=== PATIENT | male | born 1975 | race Caucasian/White ===

== ENCOUNTER 2018-09-16 14:21 | Observation (INO) ==
[2018-09-16] MEDS ORDERED: Famotidine PF Inj 20 MG/2 ML Vial IV.PUSH ONE (16:16)
[2018-09-16] MEDS ORDERED: Sod Chloride 0.9% Inj 1,000 ML IV.SIG ONE (16:16)
--- NOTE | 2018-09-16 16:45 | ED ---
HPI General Chief Complaint: Abdominal Pain Stated Complaint: abd pain Time Seen by Provider: 09/16/18 16:06 Source: patient and family Mode of arrival: ambulatory Limitations: no limitations History of Present Illness HPI narrative: Patient is a previously healthy 43-year-old male who presents with complaint of epigastric abdominal pain that began Saturday evening, approximately 24 hours ago, and is associated with nausea. He has not had any diarrhea nor constipation. No fever nor chills. No chest pain or shortness of breath. He states that this happened once before several years ago but he did not seek medical assistance and does not know what caused it. No chest pain or shortness of breath. He does not smoke, drink, nor do drugs. MD complaint: Reports abdominal pain Onset (ago): day(s) Pain Consistency: intermittent Location: Reports epigastric Severity: moderate Quality: Reports stabbing Migration to: Reports no migration Relieving factors: nothing Exacerbating factors: nothing Associated symptoms: Reports nausea Related Data Home Medications Medication Instructions Recorded Confirmed No Known Home Medications 09/16/18 09/16/18 Allergies Allergy/AdvReac Type Severity Reaction Status Date / Time penicillin G Allergy Intermediate Rash Verified 11/05/17 18:13 Review of Systems ROS: all other systems reviewed are negative [facility] Surgical History Surgical History History of intestinal surgery (Acute) Family History Family History Other Family history of cancer Family history of diabetes mellitus Social History Social History Substance History: No History of Abuse Second Hand Smoke Exposure: No Smoking Status: Former smoker Tobacco Type: Cigarettes How Often Do You Have a Drink Containing Alcohol: Never Recent Travel in [facility] within the Last 8 Weeks: No Recent Out of Country Travel within the Last 8 Weeks: No Immunization History Tetanus Immunization: Unsure Exam Narrative Exam Narrative: GENERAL: Well-appearing male in no acute distress SKIN: Focused skin assessment warm/dry. HEAD: Atraumatic. Normocephalic. EYES: Pupils equal and round. No scleral icterus. No injection or drainage. ENT: No nasal bleeding or discharge. Mucous membranes pink and moist. NECK: Trachea midline. No JVD. CARDIOVASCULAR: Regular rate and rhythm. No murmur appreciated. RESPIRATORY: No accessory muscle use. Clear to auscultation. Breath sounds equal bilaterally. GASTROINTESTINAL: Abdomen soft, tenderness in the right upper quadrant and epigastric region, nondistended. Positive De La Cruz sign. Hepatic and splenic margins not palpable. MUSCULOSKELETAL: No obvious deformities. No clubbing. No cyanosis. No edema. NEUROLOGICAL: Awake and alert. No obvious cranial nerve deficits. Motor grossly within normal limits. Normal speech. PSYCHIATRIC: Appropriate mood and affect; insight and judgment normal. Course Initial Documented Vital Signs Temperature 97.4 F L 09/16/18 14:25 Pulse Rate 74 09/16/18 14:25 Respiratory Rate 18 09/16/18 14:25 Blood Pressure 137/63 09/16/18 14:25 Pulse Oximetry 99 09/16/18 14:25 Last Documented Vital Signs Temperature 98.5 F 09/17/18 11:40 Pulse Rate 70 09/17/18 11:40 Respiratory Rate 22 09/17/18 11:40 Blood Pressure 107/62 09/17/18 11:40 Pulse Oximetry 97 09/17/18 07:25 Sign Out Sign Out Data: Patient Sign Out occurred on 09/16/18 at 17:07. Patient's care was discussed, and care was transferred from Coral Caceres MD to Urmila Jefferson DO. Sign Out Comment: Labs/US pending. Last updated by Coral Caceres MD at 09/16/18 17:04 Post-Handoff Eval: Received sign out to follow up with labs and US. 43yo M with no significant PMH here with epigastric abdominal pain since 4pm yesterday. +Nausea and vomiting. Pt given famotidine, zofran and reevaluated at bedside. Pt still with epigastric abdominal pain so morphine ordered. Labs reviewed, WBC 11.9. H/H normal. AST and ALT elevated at 91/87. Lipase normal. US gallbladder showed cholelithiasis without sonographic evidence for acute cholecystitis. Common bile duct is dilated measuring up to 8mm. Cannot exclude a distal CBD abnormality. MRCP examination may be performed by better evaluation as clinically appropriate. MRCP and GI consult ordered. Medical Decision Making MDM Narrative Medical decision making narrative: Patient is a 43-year-old male who presents with complaint of epigastric/right upper quadrant abdominal pain that began last night and is associated with nausea. It does not change with eating though he has been able to eat today without difficulty. He has some tenderness on exam in the right upper quadrant and epigastric region with a positive De La Cruz sign. IV has been established and he has been given Pepcid, Zofran, morphine in addition to IV fluids. Labs have been ordered and ultrasound has also been ordered of the gallbladder - they are pending at time of check out. Medical Screen Exam Complete: Yes Emergency Medical Condition: Yes Differential Diagnosis Differential Diagnosis: Differential diagnosis includes but is not limited to biliary colic, pancreatitis, peptic ulcer disease. Medical Records Medical records reviewed: Yes I reviewed the patient's medical records. Lab Data Result diagrams: 09/17/18 06:34 09/17/18 06:34 Lab Results 09/16/18 09/16/18 09/16/18 Range/Units 16:30 16:30 17:58 WBC 11.9 H (4.0-11.0) th/mm3 RBC 5.35 (4.50-5.90) mil/mm3 Hgb 16.7 (13.0-17.0) gm/dL Hct 46.7 (39.0-51.0) % MCV 87.4 (80.0-100.0) fL MCH 31.3 (27.0-34.0) pg MCHC 35.8 (32.0-36.0) % RDW 12.6 (11.6-17.2) % Plt Count 354 (150-450) th/mm3 MPV 7.3 (7.0-11.0) fL Neut % (Auto) 72.5 H (16.0-70.0) % Lymph % (Auto) 19.0 (9.0-44.0) % [place] % (Auto) 6.4 (0.0-8.0) % Eos % (Auto) 1.8 (0.0-4.0) % Baso % (Auto) 0.3 (0.0-2.0) % Neut # (Auto) 8.7 H (1.8-7.7) th/mm3 Lymph # (Auto) 2.3 (1.0-4.8) th/mm3 [place] # (Auto) 0.8 (0.0-0.9) th/mm3 Eos # (Auto) 0.2 (0.0-0.4) th/mm3 Baso # (Auto) 0.0 (0.0-0.2) th/mm3 WBC Differential . Differential Comment Auto diff final Sodium 137 (136-145) meq/L Potassium 4.6 (3.5-5.1) meq/L Chloride 102 (98-107) meq/L Carbon Dioxide 29.3 (21.0-32.0) meq/L Anion Gap 6 (5-15) meq/L BUN 8 (7-18) mg/dL Creatinine 1.04 (0.60-1.30) mg/dL Estimated GFR 78 L (>89) mL/min Random Glucose 99 (74-106) mg/dL Calcium 9.1 (8.5-10.1) mg/dL Magnesium 2.4 (1.5-2.5) mg/dL Total Bilirubin 1.0 (0.2-1.0) mg/dL AST 91 H (15-37) U/L ALT 87 H (12-78) U/L Alkaline Phosphatase 99 (45-117) U/L Total Protein 8.2 (6.4-8.2) g/dL Albumin 4.3 (3.4-5.0) g/dL Lipase 84 (73-393) U/L Urine Color Yellow (Yellw/Straw) Urine Clarity Clear (Clear) Urine pH 8.0 (5.0-8.5) Ur Specific [place] 1.006 (1.002-1.035) Urine Protein Negative (Neg-Trace) mg/dL Urine Glucose (UA) Negative (Negative) mg/dL Urine Ketones Negative (Negative) mg/dL Urine Occult Blood Small H (Negative) Urine Nitrate Negative (Negative) Urine Bilirubin Negative (Negative) Urine Urobilinogen Less than 2 (Less than 2) mg/dL Ur Leukocyte Esterase Negative (Negative) Urine RBC Less than 1 (0-3) /hpf Urine WBC 1 (0-5) /hpf Micro UA Comment Culture not ind Ur Microscopic Review Not Reportable Urine Culture Comments Culture not ind Hepatitis A IgM Ab (Nonreactive) Hep Bs Antigen (Nonreactive) Hep B Core IgM Ab (Nonreactive) Hep C IgG Ab (Nonreactive) 09/17/18 09/17/18 09/17/18 Range/Units 06:34 06:34 06:34 WBC 5.6 D (4.0-11.0) th/mm3 RBC 4.75 (4.50-5.90) mil/mm3 Hgb 15.2 (13.0-17.0) gm/dL Hct 42.8 (39.0-51.0) % MCV 90.1 (80.0-100.0) fL MCH 32.0 (27.0-34.0) pg MCHC 35.5 (32.0-36.0) % RDW 12.6 (11.6-17.2) % Plt Count 315 (150-450) th/mm3 MPV 7.6 (7.0-11.0) fL Neut % (Auto) 66.0 (16.0-70.0) % Lymph % (Auto) 22.6 (9.0-44.0) % [place] % (Auto) 7.3 (0.0-8.0) % Eos % (Auto) 3.7 (0.0-4.0) % Baso % (Auto) 0.4 (0.0-2.0) % Neut # (Auto) 3.7 (1.8-7.7) th/mm3 Lymph # (Auto) 1.3 (1.0-4.8) th/mm3 [place] # (Auto) 0.4 (0.0-0.9) th/mm3 Eos # (Auto) 0.2 (0.0-0.4) th/mm3 Baso # (Auto) 0.0 (0.0-0.2) th/mm3 WBC Differential . Differential Comment Auto diff final Sodium 140 (136-145) meq/L Potassium 4.3 (3.5-5.1) meq/L Chloride 106 (98-107) meq/L Carbon Dioxide 28.4 (21.0-32.0) meq/L Anion Gap 6 (5-15) meq/L BUN 9 (7-18) mg/dL Creatinine 1.15 (0.60-1.30) mg/dL Estimated GFR 70 L (>89) mL/min Random Glucose 108 H (74-106) mg/dL Calcium 8.0 L D (8.5-10.1) mg/dL Magnesium (1.5-2.5) mg/dL Total Bilirubin 1.1 H (0.2-1.0) mg/dL AST 38 H (15-37) U/L ALT 69 (12-78) U/L Alkaline Phosphatase 96 (45-117) U/L Total Protein 6.7 D (6.4-8.2) g/dL Albumin 3.4 D (3.4-5.0) g/dL Lipase (73-393) U/L Urine Color (Yellw/Straw) Urine Clarity (Clear) Urine pH (5.0-8.5) Ur Specific [place] (1.002-1.035) Urine Protein (Neg-Trace) mg/dL Urine Glucose (UA) (Negative) mg/dL Urine Ketones (Negative) mg/dL Urine Occult Blood (Negative) Urine Nitrate (Negative) Urine Bilirubin (Negative) Urine Urobilinogen (Less than 2) mg/dL Ur Leukocyte Esterase (Negative) Urine RBC (0-3) /hpf Urine WBC (0-5) /hpf Micro UA Comment Ur Microscopic Review Urine Culture Comments Hepatitis A IgM Ab Nonreactive (Nonreactive) Hep Bs Antigen Nonreactive (Nonreactive) Hep B Core IgM Ab Nonreactive (Nonreactive) Hep C IgG Ab Nonreactive (Nonreactive) Imaging Data Radiologist's impression: Chest X-Ray 09/16/18 16:16 CONCLUSION: No acute cardiopulmonary disease. Gallbladder Ultrasound 09/16/18 16:16 CONCLUSION: 1. Cholelithiasis without sonographic evidence for acute cholecystitis. 2. Prominence of the central common bile duct measuring up to 8 mm. Cannot exclude a distal CBD abnormality. MRCP examination may be performed for better evaluation as clinically appropriate. Cholangiopancreatography MRI 09/16/18 17:45 CONCLUSION: 1. Nonspecific mild prominence of the common bile duct measuring up to 7 mm. No evidence for focal abnormality involving the common bile duct. 2. Cholelithiasis without definitive evidence for acute cholecystitis. Discharge Plan Discharge Disposition Patient Disposition: ED Admit(ED Internal Use Only) Discharge Condition Condition: Stable Discharge Order Discharge Orders: Discharge Order (Routine); Ordered 09/17/18 Ordered By: Paty Rodriguez ED Use Only Admit Order (Routine); Ordered 09/16/18 Ordered By: Urmila Jefferson Discharge Details Anticipated Discharge Date: 09/17/18 Diagnosis: Abdominal pain, acute Physicians Team ED Provider: Urmila Jefferson Primary Care Provider: UNKNOWN, Attending Provider: Topher Ceron Other Providers: Josh Fragoso V ; [facility],Insurance Discharge Interventions Interventions: ED Discharge Assessment Last Done: 09/16/18 18:42 Vital Signs Last Done: 09/16/18 16:20 Status ED Status: Left Department Discharge Information Discharge Date/Time: 09/16/18 18:43
--- NOTE | 2018-09-16 16:56 | US ---
EXAM DATE: 09/16/2018 4:48 PM EST AGE/SEX: 43 years / Male INDICATIONS: Abdominal pain. CLINICAL DATA: This is the patient's initial encounter. Patient reports that signs and symptoms have been present for 2 days and indicates a pain score of 6/10. MEDICAL/SURGICAL HISTORY: . . Intestinal surgery. COMPARISON: [facility] [place] ABDOMEN & PELVIS W/O CONTRAST, 05/19/2014. . MEASUREMENTS: Liver:__ 17.2 cm. Common Bile Duct:__ 8mm. FINDINGS: Liver: Normal echotexture without focal lesion or ductal dilatation. Portal Vein: Hepatopedal flow seen in portal vein. Common Duct: Common bile duct is dilated centrally. Visualized central common bile duct demonstrates no intraluminal abnormality. Gallbladder: Normal wall gallstone with posterior acoustic shadowing measuring 10 mm. Gallbladder ot herwise is mildly distended with normal gallbladder wall thickness. No significant sonographic De La Cruz sign or pericholecystic fluid. Pancreas: The visualized portions are within normal limits Right Kidney: Normal echotexture and cortical thickness. No mass or hydronephrosis. Other: None. CONCLUSION: 1. Cholelithiasis without sonographic evidence for acute cholecystitis. 2. Prominence of the central common bile duct measuring up to 8 mm. Cannot exclude a distal CBD abno rmality. MRCP examination may be performed for better evaluation as clinically appropriate. Electronically signed by: Steve Chow MD 09/16/2018 4:55 PM EST
[2018-09-16 16:58] LABS: Baso % (Auto) 0.3 % (0.0-2.0); Eos # (Auto) 0.2 th/mm3 (0.0-0.4); Eos % (Auto) 1.8 % (0.0-4.0); Hematocrit 46.7 % (39.0-51.0); Hemoglobin 16.7 gm/dL (13.0-17.0); Lymph # (Auto) 2.3 th/mm3 (1.0-4.8); Mean Corpuscular HGB Conc 35.8 % (32.0-36.0); Mean Corpuscular Hemoglobin 31.3 pg (27.0-34.0); Mean Corpuscular Volume 87.4 fL (80.0-100.0); Mean Platelet Volume 7.3 fL (7.0-11.0); Mono # (Auto) 0.8 th/mm3 (0.0-0.9); Mono % (Auto) 6.4 % (0.0-8.0); Neut # (Auto) 8.7 th/mm3 (1.8-7.7); Neut % (Auto) 72.5 % (16.0-70.0); Platelet Count 354 th/mm3 (150-450); Red Blood Count 5.35 mil/mm3 (4.50-5.90); Red Cell Distribution Width 12.6 % (11.6-17.2); White Blood Count 11.9 th/mm3 (4.0-11.0)
--- NOTE | 2018-09-16 17:12 | XR ---
EXAM DATE: 09/16/2018 5:09 PM EST AGE/SEX: 43 years / Male INDICATIONS: . Lower chest, upper abdomen pain. Vomiting since yesterday. CLINICAL DATA: This is the patient's initial encounter. Patient reports that signs and symptoms have been present for 2 days and indicates a pain score of 10/10. MEDICAL/SURGICAL HISTORY: None. . Intestinal surgery. COMPARISON: No prior exams available for comparison. FINDINGS: PA and lateral views of the chest demonstrate the lungs to be symmetrically aerated without evidence of mass, infiltrate or effusion. The cardiomediastinal contours are unremarkable. Osseous structures are intact. CONCLUSION: No acute cardiopulmonary disease. Electronically signed by: Benny Serrano MD 09/16/2018 5:10 PM EST
[2018-09-16 17:16] LABS: Albumin 4.3 g/dL (3.4-5.0); Anion Gap 6 meq/L (5-15); Aspartate Aminotransferase 91 U/L (15-37); Blood Urea Nitrogen 8 mg/dL (7-18); Calcium 9.1 mg/dL (8.5-10.1); Carbon Dioxide 29.3 meq/L (21.0-32.0); Chloride 102 meq/L (98-107); Glomerular Filtration Rate 78 mL/min (>89); Glucose,Random 99 mg/dL (74-106); Lipase 84 U/L (73-393); Magnesium 2.4 mg/dL (1.5-2.5); Potassium 4.6 meq/L (3.5-5.1); Sodium 137 meq/L (136-145)
[2018-09-16 17:17] LABS: Alanine Aminotransferase 87 U/L (12-78)
[2018-09-16 17:19] LABS: Alkaline Phosphatase 99 U/L (45-117); Total Protein 8.2 g/dL (6.4-8.2)
[2018-09-16] MEDS ORDERED: Morphine Inj 4 MG/ML Vial IV.PUSH ONE (17:34)
--- NOTE | 2018-09-16 17:57 | P.HPIM ---
History of Present Illness Primary Care Physician: UNKNOWN Chief Complaint: abdominal pain History of Present Illness: patient is a 43 y/o male with no significant past medical history who presented to ER with abdominal pain. he says that the pain started yesterday. pain was severe in intensity and localized to the epigastric area with no radiation. he had some nausea and vomited earlier today. he denies any fever,chills,change in bowel movement. he says that he had a similar episode of abdominal pain many years ago but it went away on its own. Review of Systems All other systems reviewed negative except as stated in HPI PMFSH - History History Provided By: Patient - Medical History Medical History: Medical History (Last Reviewed 09/16/18 @ 17:53 by Maria E العراقي MD) Patient denies medical problems - Surgical History Surgical History: Surgical History (Last Reviewed 09/16/18 @ 17:53 by Maria E العراقي MD) History of intestinal surgery - Family History Family History: Family History (Last Updated 09/16/18 @ 17:54 by Maria E العراقي MD) Other Family history of cancer Family history of diabetes mellitus - Tobacco History Tobacco Use In Past 30 Days: No Smoking Status: Former smoker Tobacco Type: Cigarettes - Alcohol History How Often Do You Have a Drink Containing Alcohol: Never - Substance Use History Substance History: No History of Abuse - Travel History Recent Travel in the [place] Within the Last 8 Weeks: No Recent Travel Out of the Country Within the Last 8 Weeks: No - Immunization History Tetanus Immunization: Unsure Medications and Allergies Active Medications: Active Medications Sodium Chloride (Ns Inj) 1,000 mls @ 125 mls/hr IV.CONT .Q8H AVI Ondansetron HCl (Zofran Inj) 4 mg IV.PUSH Q8H PRN PRN Reason: nausea Sodium Chloride (Ns Flush) 2 ml IV.FLUSH PRN PRN PRN Reason: FLUSH AFTER USING IV ACCESS Allergies Allergy/AdvReac Type Severity Reaction Status Date / Time penicillin G Allergy Intermediate Rash Verified 11/05/17 18:13 Home Medications Medication Instructions Recorded Confirmed Type No Known Home Medications 09/16/18 09/16/18 History Exam Vital signs: Vital Signs 09/16/18 14:25 09/16/18 16:20 Temperature 97.4 F L Pulse Rate 74 83 Respiratory Rate 18 16 Blood Pressure 137/63 137/86 Pulse Oximetry 99 100 Intake & Output 09/15/18 09/16/18 09/16/18 18:59 06:59 18:59 Weight 69.4 kg - Constitutional no acute distress - Routine HEENT Exam Eye: Present: PERRL - Routine Neck Exam Present: supple - Routine Respiratory Exam Present: CTA bilaterally - Routine Cardiovascular Exam Present: RRR - Routine Abdominal Exam Present: soft (mild epigastric tenderness.) - Routine Extremities Exam Comments: no pedal edema. - Routine Neurological Exam Present: alert, oriented X3 Results - Labs CBC & Chem 7: 09/16/18 16:30 09/16/18 16:30 Labs: Short CBC 09/16/18 Range/Units 16:30 WBC 11.9 H (4.0-11.0) th/mm3 Hgb 16.7 (13.0-17.0) gm/dL Hct 46.7 (39.0-51.0) % Plt Count 354 (150-450) th/mm3 BMP 09/16/18 16:30 Sodium 137 Potassium 4.6 Chloride 102 Carbon Dioxide 29.3 BUN 8 Creatinine 1.04 Calcium 9.1 Liver Function 09/16/18 Range/Units 16:30 Total Bilirubin 1.0 (0.2-1.0) mg/dL AST 91 H (15-37) U/L ALT 87 H (12-78) U/L Alkaline Phosphatase 99 (45-117) U/L Albumin 4.3 (3.4-5.0) g/dL - Imaging Impressions Chest X-Ray 09/16/18 16:16 CONCLUSION: No acute cardiopulmonary disease. Gallbladder Ultrasound 09/16/18 16:16 CONCLUSION: 1. Cholelithiasis without sonographic evidence for acute cholecystitis. 2. Prominence of the central common bile duct measuring up to 8 mm. Cannot exclude a distal CBD abnormality. MRCP examination may be performed for better evaluation as clinically appropriate. Caprini VTE Risk Assessment Caprini VTE Risk Assessment: No/Low Risk (score <= 1) Caprini Risk Assessment Model: Point Value = 1 Point Value = 2 Point Value = 3 Point Value = 5 Age 41-60 Minor surgery BMI > 25 kg/m2 Swollen legs Varicose veins or History of unexplained or recurrent spontaneous Oral contraceptives or hormone replacement Sepsis (< 1 month) Serious lung disease, including pneumonia (< 1 month) Abnormal pulmonary function Acute myocardial infarction Congestive heart failure (< 1 month) History of inflammatory bowel disease Medical patient at bed rest Age 61-74 Arthroscopic surgery Major open surgery (> 45 min) Laparoscopic surgery (> 45 min) Malignancy Confined to bed (> 72 hours) Immobilizing plaster cast Central venous access Age >= 75 History of VTE Family history of VTE Factor V Leiden Prothrombin [id number] Lupus anticoagulant Anticardiolipin antibodies Elevated serum homocysteine Heparin-induced thrombocytopenia Other congenital or acquired thrombophilia Stroke (< 1 month) Elective arthroplasty Hip, pelvis, or leg fracture Acute spinal cord injury (< 1 month) Prophylaxis Regimen: Total Risk Factor Score Risk Level Prophylaxis Regimen 0-1 Low Early ambulation 2 Moderate Order ONE of the following: *Sequential Compression Device (SCD) *Heparin 5000 units SQ BID 3-4 Higher Order ONE of the following medications: *Heparin 5000 units SQ TID *Enoxaparin/Lovenox 40 mg SQ daily (WT < 150 kg, CrCl > 30 mL/min) *Enoxaparin/Lovenox 30 mg SQ daily (WT < 150 kg, CrCl > 10-29 mL/min) *Enoxaparin/Lovenox 30 mg SQ BID (WT < 150 kg, CrCl > 30 mL/min) AND/OR *Sequential Compression Device (SCD) 5 or more Highest Order ONE of the following medications: *Heparin 5000 units SQ TID (Preferred with Epidurals) *Enoxaparin/Lovenox 40 mg SQ daily (WT < 150 kg, CrCl > 30 mL/min) *Enoxaparin/Lovenox 30 mg SQ daily (WT < 150 kg, CrCl > 10-29 mL/min) *Enoxaparin/Lovenox 30 mg SQ BID (WT < 150 kg, CrCl > 30 mL/min) AND *Sequential Compression Device (SCD) Assessment and Plan - Plan A/P - abdominal pain with elevated LFT's GB sonogram with cholelithiasis and prominent central common bile duct keep NPO- will do MRCP and consult GI/ check hepatitis panel- continue with supportive care with IV fluid and pain control. Discussed Condition With: ER physician and the patient. Discharge Planning: home ; pending GI work-up.
[2018-09-16] MEDS ORDERED: Morphine Sulfate Inj 2 MG/ML Vial IV.PUSH PRN (18:00)
[2018-09-16 18:17] LABS: Bilirubin,Urine Negative (Negative); Clarity,Urine Clear (Clear); Glucose,Urine (UA) Negative (Negative); Leukocyte Esterase,Urine Negative (Negative); Nitrite,Urine Negative (Negative); Specific Gravity,Urine 1.006 (1.002-1.035)
[2018-09-16 18:18] LABS: Color,Urine Yellow (Yellw/Straw)
--- NOTE | 2018-09-16 19:31 | MR ---
EXAM DATE: 09/16/2018 7:25 PM EST AGE/SEX: 43 years / Male INDICATIONS: Cholelithiasis. Abdominal pain. CLINICAL DATA: This is the patient's subsequent encounter. Patient reports that signs and symptoms h ave been present for 1 day and indicates a pain score of 3/10. MEDICAL/SURGICAL HISTORY: None. None. COMPARISON: [facility], MR CERVICAL SPINE W/O CONTRAST, 01/10/2018. . TECHNIQUE: Multiplanar, multisequence images of the abdomen were obtained without contrast including dedicated cholangiographic images. FINDINGS: LIVER: The liver is homogeneous and normal in signal intensity with no focal defects. INTRAHEPATIC BILE DUCTS: There is no intrahepatic biliary ductal dilatation. COMMON BILE DUCT: The common bile is mildly prominent in size measuring up to 7 mm. No filling defect s or obstructing lesions are identified. GALLBLADDER: There is a single gallstone near the gallbladder neck measuring approximately 7 mm. Gall bladder is otherwise mildly distended without gallbladder wall thickening or pericholecystic fluid. PANCREAS: The pancreas appears normal in signal with no focal parenchymal abnormalities. The pancreat ic duct is normal in caliber with no filling defects, or obstructing lesions identified. CONCLUSION: 1. Nonspecific mild prominence of the common bile duct measuring up to 7 mm. No evidence for focal a bnormality involving the common bile duct. 2. Cholelithiasis without definitive evidence for acute cholecystitis. Electronically signed by: Steve Chow MD 09/16/2018 7:30 PM EST
[2018-09-16] MEDS: Sod Chloride 0.9% Inj 1,000 ML IV.CONT SCH (21:01)
[2018-09-17] MEDS: Sod Chloride 0.9% Inj 1,000 ML IV.CONT SCH ×2 (06:03→09:45)
[2018-09-17 07:35] LABS: Baso % (Auto) 0.4 % (0.0-2.0); Eos # (Auto) 0.2 th/mm3 (0.0-0.4); Eos % (Auto) 3.7 % (0.0-4.0); Hematocrit 42.8 % (39.0-51.0); Hemoglobin 15.2 gm/dL (13.0-17.0); Lymph # (Auto) 1.3 th/mm3 (1.0-4.8); Lymph % (Auto) 22.6 % (9.0-44.0); Mean Corpuscular HGB Conc 35.5 % (32.0-36.0); Mean Corpuscular Volume 90.1 fL (80.0-100.0); Mean Platelet Volume 7.6 fL (7.0-11.0); Mono # (Auto) 0.4 th/mm3 (0.0-0.9); Mono % (Auto) 7.3 % (0.0-8.0); Neut # (Auto) 3.7 th/mm3 (1.8-7.7); Platelet Count 315 th/mm3 (150-450); Red Blood Count 4.75 mil/mm3 (4.50-5.90); Red Cell Distribution Width 12.6 % (11.6-17.2); White Blood Count 5.6 th/mm3 (4.0-11.0)
[2018-09-17 08:08] LABS: Alanine Aminotransferase 69 U/L (12-78); Albumin 3.4 g/dL (3.4-5.0); Alkaline Phosphatase 96 U/L (45-117); Anion Gap 6 meq/L (5-15); Aspartate Aminotransferase 38 U/L (15-37); Blood Urea Nitrogen 9 mg/dL (7-18); Carbon Dioxide 28.4 meq/L (21.0-32.0); Chloride 106 meq/L (98-107); Glomerular Filtration Rate 70 mL/min (>89); Glucose,Random 108 mg/dL (74-106); Potassium 4.3 meq/L (3.5-5.1); Sodium 140 meq/L (136-145); Total Protein 6.7 g/dL (6.4-8.2)
[2018-09-17 08:15] LABS: Hepatitits B Surface Antigen Nonreactive (Nonreactive)
[2018-09-17 08:42] LABS: Hepatitis A IgM Antibody Nonreactive (Nonreactive)
--- NOTE | 2018-09-17 12:20 | P.DS ---
DS: Providers Date of admission: 09/16/18 17:46 Primary care physician: Dr. Dnaa Vicente Consults: 09/16/18 17:34 Consult to Gastroenterology Routine Consulting Provider: Josh Fragoso V Reason for Consultation: Epigastric pain, nausea and vomiting today. US showed dilated CBD with elevated liver enzyme, MRCP ordered. Notified:: Service Spoke with:: Heaven Date Notified:: 09/16/18 Time Notified:: 17:42 Ordering Provider: LEEANNA 09/16/18 18:42 HUB Only Consult Order Routine Consulting Provider: [place] Cenzic,Insurance Brief History from admission: patient is a 43 y/o male with no significant past medical history who presented to ER with abdominal pain. he says that the pain started yesterday. pain was severe in intensity and localized to the epigastric area with no radiation. he had some nausea and vomited earlier today. he denies any fever,chills,change in bowel movement. he says that he had a similar episode of abdominal pain many years ago but it went away on its own. DS: Diagnosis Discharge Diagnosis (1) Common bile duct (CBD) obstruction: Status: Acute DS: Summary Patient is a 43-year-old male who denies significant medical history presents to the emergency room with abdominal pain x 1 day. Pain was severe and located in the epigastric area with no radiation. He had some nausea and vomiting. Underwent MRCP after which symptoms resolved. No further nausea or vomiting. Recommended for follow-up with general surgery as an outpatient. Time Spent with Patient Total time spent providing and/or coordinating discharge services: Quality: VTE Deep Vein Thrombosis/Pulmonary Embolism Present on Admission: No Exam Narrative Exam Narrative: GENERAL: Well-nourished, well-developed adult male in no obvious distress. SKIN: Warm and dry. HEAD: Atraumatic. Normocephalic. CARDIOVASCULAR: Regular rate and rhythm. RESPIRATORY: No accessory muscle use. Clear to auscultation. Breath sounds equal bilaterally. GASTROINTESTINAL: Abdomen soft, non-tender, non-distended. Positive bowel sounds. MUSCULOSKELETAL: Extremities without clubbing, cyanosis, or edema. No obvious deformities. NEUROLOGICAL: Awake and alert. No obvious cranial nerve deficits. Motor grossly within normal limits. Normal speech. Results Labs on day of discharge: Labs from last 24 hours 09/17/18 09/17/18 09/17/18 06:34 06:34 06:34 WBC 5.6 D RBC 4.75 Hgb 15.2 Hct 42.8 MCV 90.1 MCH 32.0 MCHC 35.5 RDW 12.6 Plt Count 315 MPV 7.6 Neut % (Auto) 66.0 Lymph % (Auto) 22.6 [place] % (Auto) 7.3 Eos % (Auto) 3.7 Baso % (Auto) 0.4 Neut # (Auto) 3.7 Lymph # (Auto) 1.3 [place] # (Auto) 0.4 Eos # (Auto) 0.2 Baso # (Auto) 0.0 WBC Differential . Differential Comment Auto diff final Sodium 140 Potassium 4.3 Chloride 106 Carbon Dioxide 28.4 Anion Gap 6 BUN 9 Creatinine 1.15 Estimated GFR 70 L Random Glucose 108 H Calcium 8.0 L D Magnesium Total Bilirubin 1.1 H AST 38 H ALT 69 Alkaline Phosphatase 96 Total Protein 6.7 D Albumin 3.4 D Lipase Urine Color Urine Clarity Urine pH Ur Specific [place] Urine Protein Urine Glucose (UA) Urine Ketones Urine Occult Blood Urine Nitrate Urine Bilirubin Urine Urobilinogen Ur Leukocyte Esterase Urine RBC Urine WBC Micro UA Comment Ur Microscopic Review Urine Culture Comments Hepatitis A IgM Ab Nonreactive Hep Bs Antigen Nonreactive Hep B Core IgM Ab Nonreactive Hep C IgG Ab Nonreactive 09/16/18 09/16/18 09/16/18 17:58 16:30 16:30 WBC 11.9 H RBC 5.35 Hgb 16.7 Hct 46.7 MCV 87.4 MCH 31.3 MCHC 35.8 RDW 12.6 Plt Count 354 MPV 7.3 Neut % (Auto) 72.5 H Lymph % (Auto) 19.0 [place] % (Auto) 6.4 Eos % (Auto) 1.8 Baso % (Auto) 0.3 Neut # (Auto) 8.7 H Lymph # (Auto) 2.3 [place] # (Auto) 0.8 Eos # (Auto) 0.2 Baso # (Auto) 0.0 WBC Differential . Differential Comment Auto diff final Sodium 137 Potassium 4.6 Chloride 102 Carbon Dioxide 29.3 Anion Gap 6 BUN 8 Creatinine 1.04 Estimated GFR 78 L Random Glucose 99 Calcium 9.1 Magnesium 2.4 Total Bilirubin 1.0 AST 91 H ALT 87 H Alkaline Phosphatase 99 Total Protein 8.2 Albumin 4.3 Lipase 84 Urine Color Yellow Urine Clarity Clear Urine pH 8.0 Ur Specific [place] 1.006 Urine Protein Negative Urine Glucose (UA) Negative Urine Ketones Negative Urine Occult Blood Small H Urine Nitrate Negative Urine Bilirubin Negative Urine Urobilinogen Less than 2 Ur Leukocyte Esterase Negative Urine RBC Less than 1 Urine WBC 1 Micro UA Comment Culture not ind Ur Microscopic Review Not Reportable Urine Culture Comments Culture not ind Hepatitis A IgM Ab Hep Bs Antigen Hep B Core IgM Ab Hep C IgG Ab Impressions ITS Impressions Chest X-Ray 09/16/18 16:16 CONCLUSION: No acute cardiopulmonary disease. Gallbladder Ultrasound 09/16/18 16:16 CONCLUSION: 1. Cholelithiasis without sonographic evidence for acute cholecystitis. 2. Prominence of the central common bile duct measuring up to 8 mm. Cannot exclude a distal CBD abnormality. MRCP examination may be performed for better evaluation as clinically appropriate. Cholangiopancreatography MRI 09/16/18 17:45 CONCLUSION: 1. Nonspecific mild prominence of the common bile duct measuring up to 7 mm. No evidence for focal abnormality involving the common bile duct. 2. Cholelithiasis without definitive evidence for acute cholecystitis. Discharge Plan Discharge Disposition Patient Disposition: Discharge Home Discharge Condition Condition: Stable Discharge Order Discharge Orders: Discharge Order (Routine); Ordered 09/17/18 Ordered By: Paty Rodriguez Discharge Details Anticipated Discharge Date: 09/17/18 Physicians Team ED Provider: Urmila Jefferson Primary Care Provider: UNKNOWN, Attending Provider: Topher Ceron Other Providers: Josh Fragoso V ; [facility],Insurance Rxs /Orders / Referrals /Forms Prescriptions: No Action No Known Home Medications RF: 0 Referrals: Dana Vicente MD [FAMILY MEDICINE] - See Instructions UNKNOWN, [Primary Care Provider] - See Instructions (Your Health Problems: Goals to Promote Your Health: To prevent worsening of your condition To maintain your health at the optimal level Directions to Meet Your Goals: Take your medications as prescribed Follow your dietary instruction Follow activity as directed Keep your appointments as scheduled Take your immunizations and boosters as scheduled If your symptoms worsen call your PCP If no PCP go to Urgent Care or Emergency Room Smoking is dangerous to your health. Avoid second hand smoke. You may reach the 24-hour crisis hotline for domestic abuse at .) Discharge Instructions Patient Printed Instructions: Cholecystitis (ED) Status ED Status: Left Department
--- NOTE | 2018-09-17 12:20 | P.PNIM ---
Subjective Interval history: Patient is seen sitting up in bed. is at bedside. Patient reports that he feels much better and has no further epigastric pain, nausea or vomiting. No fever or chills. He is hungry and would like to get out of here as soon as possible so he can go have a hamburger at [employer]. Physical Exam Vital signs: Last Vital Signs Temp 98.5 F 09/17/18 11:40 Pulse 70 09/17/18 11:40 Resp 22 09/17/18 11:40 BP 107/62 09/17/18 11:40 Pulse Ox 97 09/17/18 07:25 Intake & Output 09/15/18 09/16/18 09/17/18 09/18/18 06:59 06:59 06:59 06:59 Intake Total 1999 Balance 1999 Weight 69.4 kg Narrative: GENERAL: Well-nourished, well-developed adult male in no obvious distress. SKIN: Warm and dry. HEAD: Atraumatic. Normocephalic. CARDIOVASCULAR: Regular rate and rhythm. RESPIRATORY: No accessory muscle use. Clear to auscultation. Breath sounds equal bilaterally. GASTROINTESTINAL: Abdomen soft, non-tender, non-distended. Positive bowel sounds. MUSCULOSKELETAL: Extremities without clubbing, cyanosis, or edema. No obvious deformities. NEUROLOGICAL: Awake and alert. No obvious cranial nerve deficits. Motor grossly within normal limits. Normal speech. Results Labs CBC & Chem 7: 09/17/18 06:34 09/17/18 06:34 Imaging Imaging: Impressions Chest X-Ray 09/16/18 16:16 CONCLUSION: No acute cardiopulmonary disease. Gallbladder Ultrasound 09/16/18 16:16 CONCLUSION: 1. Cholelithiasis without sonographic evidence for acute cholecystitis. 2. Prominence of the central common bile duct measuring up to 8 mm. Cannot exclude a distal CBD abnormality. MRCP examination may be performed for better evaluation as clinically appropriate. Cholangiopancreatography MRI 09/16/18 17:45 CONCLUSION: 1. Nonspecific mild prominence of the common bile duct measuring up to 7 mm. No evidence for focal abnormality involving the common bile duct. 2. Cholelithiasis without definitive evidence for acute cholecystitis. Assessment and Plan (1) Common bile duct (CBD) obstruction: Code(s): K83.1 - Obstruction of bile duct Status: Acute Plan A/P Abdominal pain with elevated LFT's -resolved Cholelithiasis and prominent central common bile duct -Symptoms resolved after MRCP. Recommending outpatient follow-up with general surgery -Hepatitis panel negative Progress Note: Quality VTE Deep Vein Thrombosis/Pulmonary Embolism Present on Admission: No
--- NOTE | 2018-09-17 14:17 | P.CONGI ---
History of Present Illness Consult date: 09/17/18 Consult reason: Epigastric pain with nausea and vomiting Dilated common bile duct with elevated LFTs Chief complaint: Dilated common bile duct History of Present Illness: Patient is a 43-year-old male with no past significant medical history who presented to the emergency room at [facility] with report of epigastric pain with nausea and vomiting times 1 day. Patient states that at he vomited twice, undigested food to clear. Patient denies any history of ever having had EGD or colonoscopy. Denies any use of alcohol or tobacco products. Family history significant for stomach cancer-patient's brother. Surgical history significant for hernia repair. Upon arrival to ER, WBC 11.9 total bilirubin 1.0 AST 91 ALT 87 alk phos 99. MRCP ordered and did not show common bile duct dilatation. Upon consultation, patient states discomfort which he describes as upper abdominal cramping that was intermittent without any alleviating or aggravating factors, is now resolved. Patient denies any nausea or vomiting currently. States he has hungry and is anxious to be discharged home. Review of Systems All other systems reviewed negative except as stated in HPI PMFSH - History History Provided By: Patient - Medical History Medical History: Medical History (Last Reviewed 09/16/18 @ 17:53 by Maria E العراقي MD) Patient denies medical problems - Surgical History Surgical History: Surgical History (Last Reviewed 09/16/18 @ 17:53 by Maria E العراقي MD) History of intestinal surgery - Family History Family History: Family History (Last Updated 09/16/18 @ 17:54 by Maria E العراقي MD) Other Family history of cancer Family history of diabetes mellitus - Tobacco History Second Hand Smoke Exposure: No Tobacco Use In Past 30 Days: No Smoking Status: Former smoker Tobacco Type: Cigarettes - Alcohol History How Often Do You Have a Drink Containing Alcohol: Never - Substance Use History Substance History: No History of Abuse - Travel History Recent Travel in the [place] Within the Last 8 Weeks: No Recent Travel Out of the Country Within the Last 8 Weeks: No - Immunization History Tetanus Immunization: Unsure Medications and Allergies Active Medications: Active Medications Sodium Chloride (Ns Inj) 1,000 mls @ 125 mls/hr IV.CONT .Q8H AVI Last Infusion: 09/17/18 12:53 Dose: Infused Morphine Sulfate (Morphine Inj) 2 mg IV.PUSH Q4H PRN PRN Reason: PAIN 1-10 Ondansetron HCl (Zofran Inj) 4 mg IV.PUSH Q8H PRN PRN Reason: nausea Sodium Chloride (Ns Flush) 2 ml IV.FLUSH PRN PRN PRN Reason: FLUSH AFTER USING IV ACCESS Allergies Allergy/AdvReac Type Severity Reaction Status Date / Time penicillin G Allergy Intermediate Rash Verified 11/05/17 18:13 Home Medications Medication Instructions Recorded Confirmed Type No Known Home Medications 09/16/18 09/16/18 History Exam Vital signs: Vital Signs 09/16/18 14:25 09/16/18 16:20 09/16/18 20:00 Temperature 97.4 F L 98.6 F Pulse Rate 74 83 71 Respiratory Rate 18 16 12 Blood Pressure 137/63 137/86 117/79 Pulse Oximetry 99 100 98 09/16/18 23:38 09/17/18 03:35 09/17/18 05:58 Temperature 98.1 F 97.9 F Pulse Rate 65 55 L 64 Respiratory Rate 12 16 Blood Pressure 97/54 L 83/53 L 116/71 Pulse Oximetry 97 96 09/17/18 07:25 09/17/18 11:40 Temperature 98.2 F 98.5 F Pulse Rate 68 70 Respiratory Rate 20 22 Blood Pressure 106/73 107/62 Pulse Oximetry 97 Intake & Output 09/16/18 09/17/18 09/17/18 18:59 06:59 18:59 Intake Total 1000 / 1000 1000 / 1000 600 / 600 Balance 1000 / 1000 1000 / 1000 600 / 600 Weight 69.4 kg Intake: IV 1000 / 1000 1000 / 1000 600 / 600 NS Inj 1,000 ML @ 125 mls/hr IV 1000 / 1000 600 / 600 .CONT .Q8H AVI Rx#:[id number] NS Inj 1,000 ML @ Wide Open IV. 1000 / 1000 SIG BOLUS ONE Rx#:[id number] Other: # Voids 1 - Constitutional no acute distress - Routine HEENT Exam Head: Present: normocephalic - Routine Respiratory Exam Present: CTA bilaterally - Routine Cardiovascular Exam Present: RRR - Routine Abdominal Exam Present: soft, normoactive bowel sounds. Absent: tenderness, distended, guarding, firm - Routine Extremities Exam Absent: edema - Routine Skin Exam Present: dry, warm - Routine Neurological Exam Present: alert Results - Labs CBC & Chem 7: 09/17/18 06:34 09/17/18 06:34 Labs: Laboratory Results - last 24 hr 09/16/18 09/16/18 09/16/18 16:30 16:30 17:58 WBC 11.9 H RBC 5.35 Hgb 16.7 Hct 46.7 MCV 87.4 MCH 31.3 MCHC 35.8 RDW 12.6 Plt Count 354 MPV 7.3 Neut % (Auto) 72.5 H Lymph % (Auto) 19.0 [place] % (Auto) 6.4 Eos % (Auto) 1.8 Baso % (Auto) 0.3 Neut # (Auto) 8.7 H Lymph # (Auto) 2.3 [place] # (Auto) 0.8 Eos # (Auto) 0.2 Baso # (Auto) 0.0 WBC Differential . Differential Comment Auto diff final Sodium 137 Potassium 4.6 Chloride 102 Carbon Dioxide 29.3 Anion Gap 6 BUN 8 Creatinine 1.04 Estimated GFR 78 L Random Glucose 99 Calcium 9.1 Magnesium 2.4 Total Bilirubin 1.0 AST 91 H ALT 87 H Alkaline Phosphatase 99 Total Protein 8.2 Albumin 4.3 Lipase 84 Urine Color Yellow Urine Clarity Clear Urine pH 8.0 Ur Specific [place] 1.006 Urine Protein Negative Urine Glucose (UA) Negative Urine Ketones Negative Urine Occult Blood Small H Urine Nitrate Negative Urine Bilirubin Negative Urine Urobilinogen Less than 2 Ur Leukocyte Esterase Negative Urine RBC Less than 1 Urine WBC 1 Micro UA Comment Culture not ind Ur Microscopic Review Not Reportable Urine Culture Comments Culture not ind Hepatitis A IgM Ab Hep Bs Antigen Hep B Core IgM Ab Hep C IgG Ab 09/17/18 09/17/18 09/17/18 06:34 06:34 06:34 WBC 5.6 D RBC 4.75 Hgb 15.2 Hct 42.8 MCV 90.1 MCH 32.0 MCHC 35.5 RDW 12.6 Plt Count 315 MPV 7.6 Neut % (Auto) 66.0 Lymph % (Auto) 22.6 [place] % (Auto) 7.3 Eos % (Auto) 3.7 Baso % (Auto) 0.4 Neut # (Auto) 3.7 Lymph # (Auto) 1.3 [place] # (Auto) 0.4 Eos # (Auto) 0.2 Baso # (Auto) 0.0 WBC Differential . Differential Comment Auto diff final Sodium 140 Potassium 4.3 Chloride 106 Carbon Dioxide 28.4 Anion Gap 6 BUN 9 Creatinine 1.15 Estimated GFR 70 L Random Glucose 108 H Calcium 8.0 L D Magnesium Total Bilirubin 1.1 H AST 38 H ALT 69 Alkaline Phosphatase 96 Total Protein 6.7 D Albumin 3.4 D Lipase Urine Color Urine Clarity Urine pH Ur Specific [place] Urine Protein Urine Glucose (UA) Urine Ketones Urine Occult Blood Urine Nitrate Urine Bilirubin Urine Urobilinogen Ur Leukocyte Esterase Urine RBC Urine WBC Micro UA Comment Ur Microscopic Review Urine Culture Comments Hepatitis A IgM Ab Nonreactive Hep Bs Antigen Nonreactive Hep B Core IgM Ab Nonreactive Hep C IgG Ab Nonreactive - Imaging Impressions Chest X-Ray 09/16/18 16:16 CONCLUSION: No acute cardiopulmonary disease. Gallbladder Ultrasound 09/16/18 16:16 CONCLUSION: 1. Cholelithiasis without sonographic evidence for acute cholecystitis. 2. Prominence of the central common bile duct measuring up to 8 mm. Cannot exclude a distal CBD abnormality. MRCP examination may be performed for better evaluation as clinically appropriate. Cholangiopancreatography MRI 09/16/18 17:45 CONCLUSION: 1. Nonspecific mild prominence of the common bile duct measuring up to 7 mm. No evidence for focal abnormality involving the common bile duct. 2. Cholelithiasis without definitive evidence for acute cholecystitis. Assessment and Plan (1) Common bile duct (CBD) obstruction Status: Acute Code(s): K83.1 - Obstruction of bile duct (2) Abdominal pain, acute Status: Acute Code(s): R10.9 - Unspecified abdominal pain - Plan Patient is a 43-year-old male with no past significant medical history who presented to the emergency room at [facility] with report of epigastric pain with nausea and vomiting times 1 day. Patient states that at he vomited twice, undigested food to clear. Patient denies any history of ever having had EGD or colonoscopy. Denies any use of alcohol or tobacco products. Family history significant for stomach cancer-patient's brother. Surgical history significant for hernia repair. Upon arrival to ER, WBC 11.9 total bilirubin 1.0 AST 91 ALT 87 alk phos 99. MRCP ordered and did not show common bile duct dilatation. Upon consultation, patient states discomfort which he describes as upper abdominal cramping that was intermittent without any alleviating or aggravating factors, is now resolved. Patient denies any nausea or vomiting currently. States he has hungry and is anxious to be discharged home. Our service has been consulted to evaluate patient for epigastric pain, nausea vomiting, dilated common bile duct with elevated LFTs Epigastric pain Nausea vomiting with dilated common bile duct elevated LFTs Patient endorses 24 hours onset of epigastric pain with nausea and vomiting. WBC 11.9 total bili 1.0 AST 91 ALT T 87 alk phos 99 on arrival to ER. 09/16/2018 MRCP revealed the following--- 1. Nonspecific mild prominence of the common bile duct measuring up to 7 mm. No evidence for focal abnormality involving the common bile duct. 2. Cholelithiasis without definitive evidence for acute cholecystitis. 09/17/2018 total bilirubin 1.1 AST 38 ALT 69 alk phos 96. Patient reports complete resolution of symptoms, states he is hungry and anxious to be discharged home. Likely common bile duct stone with spontaneous passage based on history, lab results and MRCP findings. Plan Diet as tolerated Stable for discharge home per GI standpoint Recommend surgical evaluation for laparoscopic cholecystectomy on a semi- elective basis This patient has been seen by myself and Dr. Fragoso and this note is written on his behalf - Attending Attestation tahir
== END 2018-09-17 13:16 | disposition home or self-care (01) ==
LOC: NEDA 14:21 → NEPD 14:21 → NEDA 18:43 → NEPHCDU 18:46
PROVIDERS: ADMIT Hospitalist; ATTEND Hospitalist
DX: Z80.0 Family history of malignant neoplasm of digestive organs; K80.61 Calculus of gallbladder and bile duct with cholecystitis, unspecified, with obstruction; F17.210 Nicotine dependence, cigarettes, uncomplicated; Z83.3 Family history of diabetes mellitus